=== PATIENT | female | born 1965 | race Caucasian/White ===

== ENCOUNTER → 2018-11-07 11:27 | Outpatient (CLI) | payer BC, SELFPAY ==
--- NOTE | 2018-11-07 11:32 | XR_ITS ---
XR ankle RT min 3V HISTORY: pain ITS.REASON: DEGENERATIVE JOINT DISEASE ORDERING PHYSICIAN: Nirav Deleon MD PATIENT AGE: 52 years Comparison: None FINDINGS: No fracture or dislocation. No lytic or blastic change. There is normal mineralization.. The joint spaces are well-preserved. No significant degenerative/arthritic changes. No erosive changes evident. IMPRESSION: Negative ankle, no acute finding
--- NOTE | 2018-11-07 11:32 | XR_ITS ---
XR ankle LT min 3V HISTORY: Degenerative joint disease, ankle pain ORDERING PHYSICIAN: Nirav Deleon MD PATIENT AGE: 52 years Comparison: None FINDINGS: No fracture or dislocation. No lytic or blastic change. There is normal mineralization.. The joint spaces are well-preserved. No significant degenerative/arthritic changes. No erosive changes evident. IMPRESSION: Negative ankle, no acute finding
== END ==
PROVIDERS: PCP Emergency Medicine; Visit Provider Emergency Medicine
DX: M19.90 Unspecified osteoarthritis, unspecified site (principal)
CPT/HCPCS: 73610

== ENCOUNTER → 2019-04-08 11:57 | Outpatient (CLI) | payer BC, SELFPAY ==
[2019-04-08 12:02] LABS: Adenovirus F 40/41, stool Not Detected (NotDetected); Astrovirus Not Detected (NotDetected); Campylobacter Not Detected (NotDetected); Clostridium Difficile A/B, PCR Not Detected (NotDetected); Cryptosporidium Not Detected (NotDetected); Cyclospora Cayetanesis Not Detected (NotDetected); Entamoeba histolytica Not Detected (NotDetected); Enteroaggregative E coli Not Detected (NotDetected); Enteropathogenic E coli Not Detected (NotDetected); Enterotoxigenic E coli Not Detected (NotDetected); Giardia lamblia Not Detected (NotDetected); Norovirus Not Detected (NotDetected); Plesimonas Shigalloides, PCR Not Detected (NotDetected); Rotavirus A Not Detected (NotDetected); Salmonella, PCR Not Detected (NotDetected); Sapovirus Not Detected (NotDetected); Shiga-like toxin E coli Not Detected (NotDetected); Shigella Enterovasive E coli Not Detected (NotDetected); Vibrio Cholerae Not Detected (NotDetected); Vibrio, PCR Not Detected (NotDetected); Yersinia Entercolitica, PCR Not Detected (NotDetected)
== END ==
PROVIDERS: Visit Provider Emergency Medicine
DX: R19.7 Diarrhea, unspecified (principal)
CPT/HCPCS: 87506; 87507

== ENCOUNTER → 2019-12-15 12:01 | Outpatient (CLI) | payer BC, SELFPAY ==
--- NOTE | 2019-12-15 12:11 | CT_ITS ---
PROCEDURE: CT ABDOMEN PELVIS WO CON CLINICAL INDICATION: KIDNEY STONE Right flank pain COMPARISON: No exams were available for comparison TECHNIQUE: Axial images obtained with sagittal and coronal reformats. All CT scans at the facility use one or more dose reduction, viz: automated exposure control, ma/kV adjustment per patient size (including targeted exams where dose is matched to indication, i.e. head), or iterative reconstruction technique. FINDINGS: LOWER THORAX: No acute finding ABDOMEN & PELVIS: Prior cholecystectomy. The liver, spleen, adrenal glands, and pancreas have an unremarkable appearance. No renal or ureteral calculi. There is very minimal ectasia of the right renal collecting system but no definite ureteral calculus. There is a small calcific density at the vaginal region centrally between the labia and could represent a small calculus at the distal aspect of the urethra. This measures approximately 3 mm. No evidence of appendicitis. No intestinal obstruction or free air. No evidence of diverticulitis. No localized fluid collections. There is mild degenerative disc disease at L4-5 with endplate irregularity and sclerosis IMPRESSION: 1. Minimal ectasia of the right renal collecting system possibly due to recently passed stone which may be within the urethra. Please correlate with clinical findings. 2. Degenerative disc disease L4-5 Dictated by: Aries Glez MD 12/16/2019 11:47 Electronically signed by Aries Glez MD in [facility] 12/16/2019 11:47
== END ==
PROVIDERS: PCP Nurse Practitioner Family; Visit Provider Nurse Practitioner Family
DX: N20.0 Calculus of kidney (principal)
CPT/HCPCS: 74176

== ENCOUNTER → 2020-06-28 10:08 | Outpatient (CLI) | payer BC, SELFPAY ==
--- NOTE | 2020-06-28 10:13 | XR_ITS ---
PROCEDURE: XR CERVICAL SPINE 5V CLINICAL INDICATION: RADICULOPATHY AFFECTING UPPER EXTREMITY COMPARISON: No exams were available for comparison FINDINGS: No fracture or dislocation. No lytic or blastic change. There is normal mineralization. Normal alignment. Neural foramina are widely patent. No cervical rib is evident. A small calcific density is present at the tip of C7 and could be due to an old injury or nuchal ligament calcification. There is minimal calcification along the anterior aspect of the C5-C6 disc space. Other findings:None. IMPRESSION: No acute findings. Dictated by: Aries Glez MD 06/28/2020 13:47 Aries Glez MD in [facility] 06/28/2020 13:47
--- NOTE | 2020-06-28 10:13 | XR_ITS ---
PROCEDURE: XR SHOULDER LT MIN 2V CLINICAL INDICATION: RADICULOPATHY AFFECTING UPPER EXTREMITY Pain COMPARISON: No exams were available for comparison FINDINGS: No fracture or dislocation. No lytic or blastic change. There is normal mineralization. The joint spaces are well-preserved. No significant degenerative/arthritic changes. No erosive changes evident. Other findings:None. IMPRESSION: Negative left shoulder Dictated by: Aries Glez MD 06/28/2020 13:45 Aries lGez MD in [facility] 06/28/2020 13:45
== END ==
PROVIDERS: PCP Family Medicine; Visit Provider Family Medicine
DX: M54.10 Radiculopathy, site unspecified (principal)
CPT/HCPCS: 72050; 73030

== ENCOUNTER → 2020-11-08 13:53 | Outpatient (POV) | payer BC, SELFPAY | PROVIDERS: Visit Provider Dermatology | DX: Z00.00 Encounter for general adult medical examination without abnormal findings (principal) ==

== ENCOUNTER → 2022-07-09 09:05 | Outpatient (CLI) | payer BC, SELFPAY ==
--- NOTE | 2022-07-09 09:11 | XR_ITS ---
FINAL REPORT TECHNIQUE: Bone densitometry calculations of the lumbar spine and right hip were obtained. CLINICAL HISTORY: . post menopausal screening FINDINGS: DEXA BONE DENSITY AXIAL SKELETON Using L1-4, the bone mineral density of the spine is 0.944 g/cm2, corresponding to T-score of 0.9. Using the right hip, the bone mineral density of the femoral neck is 0.671 g/cm2, corresponding to a T-score of -1.6. NOTE: T-score: Standard deviation compared with peak bone mass of young adult mean. *Following the recommendations of the International Society of Bone densitometry, classification of hip BMD is based on the lower of two T-scores; total hip or femoral neck. IMPRESSION: Diminished bone mineral density of the lumbar spine and left hip consistent with osteopenia. Reviewed, Interpreted and Dictated by Raz Núñez III, MD Transcribed by Katie Kline Authenticated and [facility]
== END ==
PROVIDERS: PCP Family Medicine; Visit Provider Family Medicine
DX: Z78.0 Asymptomatic menopausal state (principal)
CPT/HCPCS: 77080

== ENCOUNTER 2024-03-04 14:46 | Outpatient (CLI) | payer OTHER, SELFPAY ==
--- NOTE | 2024-03-04 15:05 | XR_ITS ---
FINAL REPORT CLINICAL HISTORY: PAIN FINDINGS: 2 VIEW ABDOMEN 2 views of the abdomen were obtained. There is a nonspecific, nonobstructive bowel gas pattern. Patient is status postcholecystectomy. There is no free air. Osseous fractures are unremarkable. IMPRESSION: Nonspecific, nonobstructive bowel gas pattern. Reviewed, Interpreted and Dictated by Db Frances MD Transcribed by Reema Culp Authenticated and [facility]
== END 2024-03-04 23:59 | disposition home or self-care (01) ==
LOC: RAD 14:52
DX: R10.9 Unspecified abdominal pain (principal)
CPT/HCPCS: 74019

== ENCOUNTER 2024-05-19 15:30 | Outpatient (CLI) | payer OTHER, SELFPAY | END 2024-05-19 23:59 | disposition home or self-care (01) | LOC: LAB.DROPOF 05-20 10:42 | PROVIDERS: PCP Nurse Practitioner Family; Visit Provider Nurse Practitioner Family | DX: R39.9 Unspecified symptoms and signs involving the genitourinary system (principal) | CPT/HCPCS: 87086 ==